=== PATIENT | female | born 1985 | race Caucasian/White ===

== ENCOUNTER 2024-12-23 06:33 | Inpatient (IN) | payer OTHER ==
[2024-12-23 06:44] VITALS: RESP 18; BMI 23.8
[2024-12-23] MEDS ORDERED: KETOROLAC TROMETHAMINE 15 MG/ML VIAL ONE (07:28)
[2024-12-23] MEDS: KETOROLAC TROMETHAMINE 15 MG/ML VIAL IVPUSH ONE (07:53)
[2024-12-23] MEDS ORDERED: ACETAMINOPHEN INJECTION 100 ML ONE (08:04)
[2024-12-23] MEDS: ACETAMINOPHEN 1000 MG/100 ML BAG IVPB ONE (08:09)
[2024-12-23 08:15] LABS: ABSOLUTE IMMATURE GRANULOCYTES 0.04 x10^3/uL (0.0-0.031); BASOPHILS # 0.02 x10^3/uL (0.01-0.08); EOSINOPHIL % 0.3 % (0.7-5.8); EOSINOPHILS # 0.03 x10^3/uL (0.04-0.36); HEMATOCRIT 43.5 % (34.1-44.9); HEMOGLOBIN 14.5 g/dL (11.2-15.7); MCHC 33.3 g/dl (32.2-35.5); MEAN PLT VOLUME 9.8 fl (9.4-12.3); MONOCYTE # 1.07 x10^3/uL (0.24-0.86); MONOCYTE % 9.7 % (4.7-12.5); PLATELET COUNT 348 x10^3/uL (182-369); RDW 13.8 % (12.1-16.8)
[2024-12-23 08:19] LABS: POTASSIUM 3.6 mmol/L (3.5-5.1)
[2024-12-23 08:21] LABS: CALCIUM 9.5 mg/dL (8.5-10.1)
[2024-12-23 08:22] LABS: ALBUMIN 3.8 g/dl (3.4-5.0); BLOOD UREA NITROGEN 14.1 mg/dL (7-18)
[2024-12-23 08:24] LABS: URIC ACID 2.8 mg/dL (2.6-7.2)
[2024-12-23 08:25] LABS: CREATININE 0.8 mg/dL (0.55-1.3)
[2024-12-23 08:27] LABS: BILIRUBIN,TOTAL 2.2 mg/dL (0.2-1); TOT PROT 7.5 g/dl (6.4-8.2)
[2024-12-23] MEDS ORDERED: VANCOMYCIN 1 GM PREMIX (F) 1 GM/200 ML BAG ONE (08:30)
[2024-12-23] MEDS: VANCOMYCIN 1,000 MG in DEXTROSE 5%-WATER - 250 ML IVPB ONE (08:46)
[2024-12-23 09:11] LABS: BILIRUBIN,DIRECT 0.4 mg/dL (0.0-0.2)
[2024-12-23 10:23] LABS: ERYTHROCYTE SEDIMENTATION RATE 18 mm/hr (0-20)
[2024-12-23] MEDS ORDERED: NAPROXEN 500 MG TABLET ONE (10:52)
[2024-12-23] MEDS ORDERED: CEFAZOLIN 2 GM/D5W 2 GM/50 ML ML IVPB ONE (10:52)
[2024-12-23] MEDS: CEFAZOLIN 2 GM/D5W 2 GM/50 ML ML IVPB SCH (11:04)
[2024-12-23] MEDS: NAPROXEN 500 MG TABLET PO ONE (11:04)
[2024-12-23] MEDS ORDERED: FAMOTIDINE 20 MG/50 ML IVPB 20 MG/50 ML MG IVPB ONE (11:39)
[2024-12-23] MEDS ORDERED: methylPREDNISolone NA SUCC 40 MG/1 ML VIAL ONE (11:39)
[2024-12-23] MEDS: methylPREDNISolone NA SUCC 40 MG/1 ML VIAL IVPUSH ONE (11:50)
[2024-12-23] MEDS: FAMOTIDINE 20 MG/50 ML IVPB 20 MG/50 ML MG IVPB ONE (11:50)
[2024-12-23] MEDS ORDERED: diphenhydrAMINE HCL 25 MG CAPSULE (FP) PO PRN (11:53)
[2024-12-23] MEDS ORDERED: diphenhydrAMINE HCL 25 MG CAPSULE (FP) PO SCH (14:00)
[2024-12-23] MEDS: ACETAMINOPHEN 500 MG TABLET (FP) PO PRN (15:46)
[2024-12-23] MEDS: AZTREONAM 1 GM in DEXTROSE 5%-WATER - 50 ML IVPB SCH (18:54)
[2024-12-23] MEDS: NAPROXEN 500 MG TABLET PO SCH (21:43)
[2024-12-23] MEDS: VANCOMYCIN 1 GM PREMIX (F) 1 GM/200 ML BAG IVPB SCH (22:20)
[2024-12-24 08:47] LABS: HEMATOCRIT 41.8 % (34.1-44.9); HEMOGLOBIN 13.6 g/dL (11.2-15.7); MCHC 32.5 g/dl (32.2-35.5); MEAN CELL VOLUME 84.4 fl (79.4-94.8); MEAN PLT VOLUME 9.7 fl (9.4-12.3); PLATELET COUNT 343 x10^3/uL (182-369); RDW 13.9 % (12.1-16.8)
[2024-12-24] MEDS ORDERED: VANCOMYCIN 1 GM PREMIX (F) 1 GM/200 ML BAG IVPB SCH (09:00)
[2024-12-24 09:10] LABS: POTASSIUM 4.1 mmol/L (3.5-5.1)
[2024-12-24 09:14] LABS: ALBUMIN 3.5 g/dl (3.4-5.0); BLOOD UREA NITROGEN 16.6 mg/dL (7-18); CALCIUM 9.8 mg/dL (8.5-10.1); MAGNESIUM 2.3 mg/dL (1.8-2.4)
[2024-12-24 09:17] LABS: CREATININE 0.8 mg/dL (0.55-1.3); PHOSPHOROUS 2.5 mg/dL (2.5-4.9)
[2024-12-24 09:19] LABS: TOT PROT 6.9 g/dl (6.4-8.2)
[2024-12-24] MEDS: KETOROLAC TROMETHAMINE 15 MG/ML VIAL IVPUSH ONE (15:40)
[2024-12-24 16:18] LABS: HIV INTERPRETATION NEGATIVE (NEGATIVE)
[2024-12-25 09:22] LABS: ABSOLUTE IMMATURE GRANULOCYTES 0.03 x10^3/uL (0.0-0.031); BASOPHILS # 0.03 x10^3/uL (0.01-0.08); EOSINOPHIL % 1.4 % (0.7-5.8); EOSINOPHILS # 0.12 x10^3/uL (0.04-0.36); HEMOGLOBIN 13.5 g/dL (11.2-15.7); MCHC 32.9 g/dl (32.2-35.5); MEAN CELL VOLUME 84.5 fl (79.4-94.8); MEAN PLT VOLUME 9.9 fl (9.4-12.3); MONOCYTE # 0.41 x10^3/uL (0.24-0.86); MONOCYTE % 4.7 % (4.7-12.5); PLATELET COUNT 326 x10^3/uL (182-369); RDW 14.1 % (12.1-16.8)
[2024-12-25] MEDS: VANCOMYCIN 1 GM PREMIX (F) 1 GM/200 ML BAG IVPB SCH (09:50)
[2024-12-25] MEDS: PANTOPRAZOLE 20 MG TABLET PO SCH (12:42)
[2024-12-25] MEDS: INDOMETHACIN 50 MG CAPSULE PO SCH (17:46)
[2024-12-26 08:03] LABS: ABSOLUTE IMMATURE GRANULOCYTES 0.02 x10^3/uL (0.0-0.031); BASOPHILS # 0.02 x10^3/uL (0.01-0.08); EOSINOPHIL % 2.8 % (0.7-5.8); EOSINOPHILS # 0.15 x10^3/uL (0.04-0.36); HEMATOCRIT 39.8 % (34.1-44.9); HEMOGLOBIN 12.9 g/dL (11.2-15.7); MCHC 32.4 g/dl (32.2-35.5); MEAN CELL VOLUME 84.5 fl (79.4-94.8); MEAN PLT VOLUME 9.1 fl (9.4-12.3); MONOCYTE # 0.46 x10^3/uL (0.24-0.86); MONOCYTE % 8.6 % (4.7-12.5); PLATELET COUNT 323 x10^3/uL (182-369); RDW 13.6 % (12.1-16.8)
[2024-12-26 08:27] LABS: POTASSIUM 3.9 mmol/L (3.5-5.1)
[2024-12-26 08:35] LABS: CALCIUM 9.3 mg/dL (8.5-10.1)
[2024-12-26 08:36] LABS: BLOOD UREA NITROGEN 13.3 mg/dL (7-18)
[2024-12-26 08:38] LABS: CREATININE 0.7 mg/dL (0.55-1.3)
[2024-12-26 08:40] LABS: BILIRUBIN,TOTAL 1.2 mg/dL (0.2-1); TOT PROT 6.5 g/dl (6.4-8.2)
[2024-12-26] MEDS: VANCOMYCIN HCL IN 5 % DEXTROSE 1,250 MG/250 ML BAG IV SCH (21:44)
[2024-12-27 09:52] VITALS: BP 137/87; PULSE 74; TEMP 98.1
== END 2024-12-27 12:50 | disposition home or self-care (01) | DRG 383 ==
LOC: JER 06:33 → JERBED 09:15 → UNDOADMOB 09:15 → OBSVTOIN 10:09 → INTOOBSV 10:09 → JERBED 11:02 → J5S 12:28 → OBSVTOIN 12-24 11:34
PROVIDERS: ADMIT Internal Medicine
DX: L03.114 Cellulitis of left upper limb (principal); D72.829 Elevated white blood cell count, unspecified
CPT/HCPCS: 36415; 73110-TC-LT-FY; 73130-TC-LT-FY; 80053; 82248; 83036; 83605; 83735; 84100; 84550; 84703; 85025; 85027; 85651; 86038; 86140; 86431; 86618; 86803; 87040; 87389; 87491; 87591; 93005; 93010; 93971; 96374; 99285-25; G0378; G0480